=== PATIENT | male | born 1995 | race Caucasian/White ===

== ENCOUNTER 2021-09-07 13:13 | Emergency (ER) | payer OTHER, SELFPAY ==
[~2021-09-07] VITALS: Ht 167.6 cm; Wt 102.3 kg
[2021-09-07] MEDS ORDERED: FLUORESCEIN OPHTH 1 MG STRIP XX ONE (14:10)
[2021-09-07] MEDS: PROPARACAINE 0.5% OPHTH SOL 15ML XX ONE ×2 (14:10→15:34)
[2021-09-07 16:08] VITALS: BP 158/80
== END 2021-09-07 16:22 | disposition home or self-care (01) ==
LOC: M ED 13:13
DX: S05.01XA Injury of conjunctiva and corneal abrasion without foreign body, right eye, initial encounter (principal); X58.XXXA Exposure to other specified factors, initial encounter; Y92.89 Other specified places as the place of occurrence of the external cause; H54.60 Unqualified visual loss, one eye, unspecified; F17.200 Nicotine dependence, unspecified, uncomplicated